=== PATIENT | male | born 1975 | race Caucasian/White ===

== ENCOUNTER 2017-08-27 19:11 | Emergency (ER) | payer SELFPAY ==
[2017-08-27 19:13] VITALS: BP 199/108; PULSE 89; RESP 20; TEMP 37.2; O2SAT 98; BMI 25.1
--- NOTE | 2017-08-27 19:19 | XR_ITS ---
XR chest 2V HISTORY: Shortness of air ITS.REASON: soa ORDERING PHYSICIAN: Michael Andrew MD PATIENT AGE: 42 years COMPARISON: None available FINDINGS: There is moderate to severe elevation of left hemidiaphragm. Heart is slightly shifted toward the right. There are no previous exams for comparison. Visualized lung rubio are clear. Normal size heart. No evidence of CHF. IMPRESSION: Elevated left hemidiaphragm otherwise negative chest
[2017-08-27 19:32] LABS: Basophils # 0.1 K/mm3 (0-0.2); Basophils % 0.4 % (0.1-2.0); Eosinophils # 0.3 K/mm3 (0.0-0.4); Eosinophils % 2.1 % (0.1-12.0); Hematocrit 52.4 % (42.0-52.0); Hemoglobin 17.3 g/dL (14.1-18.0); Lymphocytes # 4.6 K/mm3 (0.7-4.5); Lymphocytes % 38.4 K/mm3 (10-50); Mean Corpuscular HGB Conc 33.1 g/dL (31.8-35.4); Mean Corpuscular Hemoglobin 31.1 pg (27.0-31.2); Mean Corpuscular Volume 93.8 fl (80-94); Mean Platelet Volume 7.6 fl (7.4-10.4); Monocytes # 0.6 K/mm3 (0.1-1.0); Monocytes % 5.3 % (1.7-9.3); Neutrophils # 6.5 K/mm3 (1.8-7.8); Neutrophils % 53.8 % (37.0-80.0); Platelet Count 267 K/mm3 (142-424); Red Blood Count 5.58 M/mm3 (4.60-6.20); Red Cell Distribution Width 12.2 % (11.5-17.5)
[2017-08-27 19:52] LABS: Creatine Kinase 106 U/L (39-308); Potassium 3.8 mmoL/L (3.5-5.1); Sodium 141 mmol/L (136-145); Troponin I < 0.02 ng/ml (0.00-0.06)
[2017-08-27 19:53] LABS: Alanine Aminotransferase 25 U/L (12-78); Albumin Level 3.8 gm/dL (3.4-5.0); Albumin/Globulin Ratio 1.1 (1.1-1.8); Alkaline Phosphatase 81 U/L (46-116); Aspartate Amino Transferase 16 U/L (15-37); Bilirubin,Total 0.3 mg/dL (0.2-1.0); Blood Urea Nitrogen 18 mg/dL (7-18); Carbon Dioxide 28 mmol/L (21.0-32.0); Chloride 104 mmol/L (98-107); Creatinine Clearance Estimated 80 mL/min (0-300); Creatinine,Serum 1.37 mg/dL (0.70-1.30); Estimated Glomerular Filt Rate 57 ml/min (>60); GFR (African American) 69 ML/MIN (>60); Globulin 3.6 gm/dl (1.3-3.2); Glucose 113 mg/dL (74-106); Total Protein,Serum 7.4 gm/dL (6.4-8.2)
[2017-08-27 20:01] LABS: CKMB Relative Index 0.9 U/L (0-4.0)
--- NOTE | 2017-08-27 20:08 | HMH.EDCP ---
ED Disposition Clinical Impression: Atypical chest pain Disposition: Home, Self-Care Condition on Discharge: Good Instructions: DI for Atypical Chest Pain Additional Instructions: see pcp for follow up - Critical Care Critical Care Time: No Attestation: On 08/27/17, the high probability of a clinically significant, sudden or life threatening deterioration of the following system(s) required my full and direct attention, intervention and personal management. The time I documented below is in addition to time spent performing reported procedures but includes the following listed in this critical care notation. Medical Decision Making - Medical Records Medical records reviewed: Yes: I reviewed the patient's medical records. - Henry Inquiry Pt receiving controlled substance: No Vital Signs: 08/27/17 19:13 08/27/17 20:13 08/27/17 22:00 Temperature 98.9 F 98.1 F Temperature Source Oral Oral Pulse Rate [Right Brachial] 89 78 81 Respiratory Rate 20 16 16 Blood Pressure [Right Arm] 199/108 134/83 139/97 Blood Pressure Mean [Right Arm] 138 100 111 Blood Pressure Source [Right Arm] Automatic Cuff Automatic Cuff Automatic Cuff Blood Pressure Position [Right Arm] Sitting Supine Sitting 02 Sat by Pulse Oximetry 98 98 97 Oxygen Delivery Method Room Air Room Air Room Air - Lab Data Lab results reviewed: Yes: I reviewed the patient's lab results. Lab Results 08/27/17 19:20: WBC 12.0 H, RBC 5.58, Hgb 17.3, Hct 52.4 H, MCV 93.8, MCH 31.1, MCHC 33.1, RDW 12.2, Plt Count 267, MPV 7.6, Neut % (Auto) 53.8, Lymph % (Auto) 38.4, [place] % (Auto) 5.3, Eos % (Auto) 2.1, Baso % (Auto) 0.4, Neut # (Auto) 6.5, Lymph # (Auto) 4.6 H, [place] # (Auto) 0.6, Eos # (Auto) 0.3, Baso # (Auto) 0.1 08/27/17 19:20: Sodium 141, Potassium 3.8, Chloride 104, Carbon Dioxide 28, Anion Gap 9.0, BUN 18, Creatinine 1.37 H, Estimated Creat Clear 80, Estimated GFR 57 L, Est GFR ( Amer) 69, Glucose 113 H, Calcium 9.0, Total Bilirubin 0.3, AST 16, ALT 25, Alkaline Phosphatase 81, Total Creatine Kinase 106, CK-MB (CK-2) 1.0, CK-MB (CK-2) Rel Index 0.9, Troponin I < 0.02, Total Protein 7.4, Albumin 3.8, Globulin 3.6 H, Albumin/Globulin Ratio 1.1 08/27/17 19:20: Amylase 57, Lipase 129 Result diagrams: 08/27/17 19:20 08/27/17 19:20 Orders (Tests/Meds): ED MEDICATIONS Discontinued Medications Generic Name Dose Route Start Last Admin Trade Name Freq PRN Reason Stop Dose Admin Ketorolac Tromethamine 30 mg 08/27/17 19:28 08/27/17 19:29 Toradol 30mg/Ml Vial IV 08/27/17 19:29 30 mg ONCE ONE Administration ORDERS Category Date Time Status CT abdomen pelvis wo con Stat Cat Scan 08/27/17 20:[address] chest wo con Stat Cat Scan 08/27/17 20:44 Taken XR chest 2V Stat Exams 08/27/17 19:19 Taken Drug Screen,Urine Stat Lab 08/27/17 20:43 Ordered UA [Urinalysis and Microscopic] Stat Lab 08/27/17 20:43 Ordered 12-lead EKG Request [ECG Request by /Leda] Stat Y 08/27/17 19:19 Ordered - Radiology Data #1 Image(s): Chest Image Reviewed: Yes I reviewed the patient's radiology image Preliminary Findings: Abnormal (elevated lt diaphragm) - CT Data CT Scan: Abdomen, Chest Time Received: 22:[address] Reviewed: Yes: I have viewed the radiologist's interpretation Preliminary Findings: Abnormal (see report) - ECG Data Tracing #1 I reviewed this ECG and interpreted as documented below: Normal Sinus Rhythm: Yes Ischemic changes: non-specific ST-T wave changes Chest Pain HPI - General Chief Complaint: Chest Pain Stated Complaint: chest pain Time Seen by Provider: 08/27/17 20:00 Mode of Arrival: Family Vehicle Source of Information: Patient, Parent(s), Medical Record Limitations: No Limitations Description of Symptoms (Recalled from ER Triage Doc. by RN): chest pain that started about 2 hours ago accompanied by soa. reports pain at midsternal, no radiation - History of Present Illness HPI narrative: pt
[2017-08-27 20:13] VITALS: BP 134/83; PULSE 78; RESP 16; O2SAT 98
--- NOTE | 2017-08-27 20:21 | ED_ITS ---
ED Disposition Clinical Impression: Atypical chest pain Disposition: Home, Self-Care Condition on Discharge: Good Instructions: DI for Atypical Chest Pain Additional Instructions: see pcp for follow up - Critical Care Critical Care Time: No Attestation: On 08/27/17, the high probability of a clinically significant, sudden or life threatening deterioration of the following system(s) required my full and direct attention, intervention and personal management. The time I documented below is in addition to time spent performing reported procedures but includes the following listed in this critical care notation. Medical Decision Making - Medical Records Medical records reviewed: Yes: I reviewed the patient's medical records. - Henry Inquiry Pt receiving controlled substance: No Vital Signs: 08/27/17 19:13 08/27/17 20:13 08/27/17 22:00 Temperature 98.9 F 98.1 F Temperature Source Oral Oral Pulse Rate [Right Brachial] 89 78 81 Respiratory Rate 20 16 16 Blood Pressure [Right Arm] 199/108 134/83 139/97 Blood Pressure Mean [Right Arm] 138 100 111 Blood Pressure Source [Right Arm] Automatic Cuff Automatic Cuff Automatic Cuff Blood Pressure Position [Right Arm] Sitting Supine Sitting 02 Sat by Pulse Oximetry 98 98 97 Oxygen Delivery Method Room Air Room Air Room Air - Lab Data Lab results reviewed: Yes: I reviewed the patient's lab results. Lab Results 08/27/17 19:20: WBC 12.0 H, RBC 5.58, Hgb 17.3, Hct 52.4 H, MCV 93.8, MCH 31.1, MCHC 33.1, RDW 12.2, Plt Count 267, MPV 7.6, Neut % (Auto) 53.8, Lymph % (Auto) 38.4, [place] % (Auto) 5.3, Eos % (Auto) 2.1, Baso % (Auto) 0.4, Neut # (Auto) 6.5 , Lymph # (Auto) 4.6 H, [place] # (Auto) 0.6, Eos # (Auto) 0.3, Baso # (Auto) 0.1 08/27/17 19:20: Sodium 141, Potassium 3.8, Chloride 104, Carbon Dioxide 28, Anion Gap 9.0, BUN 18, Creatinine 1.37 H, Estimated Creat Clear 80, Estimated GFR 57 L, Est GFR ( Amer) 69, Glucose 113 H, Calcium 9.0, Total Bilirubin 0.3, AST 16, ALT 25, Alkaline Phosphatase 81, Total Creatine Kinase 106, CK-MB (CK-2) 1.0, CK-MB (CK-2) Rel Index 0.9, Troponin I < 0.02, Total Protein 7.4, Albumin 3.8, Globulin 3.6 H, Albumin/Globulin Ratio 1.1 08/27/17 19:20: Amylase 57, Lipase 129 Result diagrams: 08/27/17 19:20 08/27/17 19:20 Orders (Tests/Meds): ED MEDICATIONS Discontinued Medications Generic Name Dose Route Start Last Admin Trade Name Freq PRN Reason Stop Dose Admin Ketorolac Tromethamine 30 mg 08/27/17 19:28 08/27/17 19:29 Toradol 30mg/Ml Vial IV 08/27/17 19:29 30 mg ONCE ONE Administration ORDERS Category Date Time Status CT abdomen pelvis wo con Stat Cat Scan 08/27/17 20:[address] chest wo con Stat Cat Scan 08/27/17 20:44 Taken XR chest 2V Stat Exams 08/27/17 19:19 Taken Drug Screen,Urine Stat Lab 08/27/17 20:43 Ordered UA [Urinalysis and Microscopic] Stat Lab 08/27/17 20:43 Ordered 12-lead EKG Request [ECG Request by /Leda] Stat Y 08/27/17 19:19 Ordered - Radiology Data #1 Image(s): Chest Image Reviewed: Yes I reviewed the patient's radiology image Preliminary Findings: Abnormal (elevated lt diaphragm) - CT Data CT Scan: Abdomen, Chest Time Received: 22:[address] Reviewed: Yes: I have viewed the radiologist's interpretation Preliminary Findings: Abnormal (see report)
--- NOTE | 2017-08-27 20:43 | CT_ITS ---
CT abdomen pelvis wo con CLINICAL INDICATION: Abdominal pain ITS.REASON: abd pain ORDERING PHYSICIAN: Alejandro Eaton MD PATIENT AGE: 42 years COMPARISON: None TECHNIQUE: Axial images obtained with sagittal and coronal reformats. All CT scans at the facility use one or more dose reduction, viz: automated exposure control; ma/kV adjustment per patient size (including targeted exams where dose is matched to indication; i.e. head); or iterative reconstruction technique. PROCEDURE: Oral Contrast: None IV Contrast: None . FINDINGS: There is elevated left hemidiaphragm. The liver, spleen, adrenal glands, pancreas, and kidneys have an unremarkable unenhanced CT appearance. Gallbladder is mildly distended. No radio opaque stones are evident. No biliary ductal dilatation. There is some mild haziness of the fat in the portal region nonspecific. Gallbladder ultrasound may be of further value. There is circumaortic left renal vein as a normal variant. Unremarkable appendix. No evidence of intestinal obstruction, free air, or diverticulitis. No pelvic mass or abnormal fluid collection or focal inflammatory change evident. No acute bony anomalies. IMPRESSION: 1. Mild gallbladder distention with questionable haziness in the fat of the portal hepatus. Gallbladder ultrasound may be of further value. 2. Elevated left hemidiaphragm. 3. Otherwise negative CT abdomen pelvis without contrast
--- NOTE | 2017-08-27 20:44 | CT_ITS ---
CT chest wo con INDICATION: Chest pain, abnormal chest x-ray, shortness of air ITS.REASON: abn cxr/chest pain ORDERING PHYSICIAN: Alejandro Eaton MD PATIENT AGE: 42 years COMPARISON: Radiograph of the same day TECHNIQUE: Axial images are obtained without contrast. Sagittal and coronal reformatted images are reviewed as well. All CT scans at the facility use one or more dose reduction, viz: automated exposure control; ma/kV adjustment per patient size (including targeted exams where dose is matched to indication; i.e. head); or iterative reconstruction technique. FINDINGS: No mediastinal or hilar mass. Normal heart size without evidence of pericardial effusion. Left hemidiaphragm is elevated. The heart is slightly shifted toward the right. Coronary artery calcifications are present. Mild atelectatic or fibrotic changes are present in the right middle lobe. Calcified nodes are present in the nathalia and there is a calcified granuloma in the right upper lobe. Upper abdominal images show elevated left hemidiaphragm. IMPRESSION: 1. Elevated left hemidiaphragm with mild cardiac shift towards the right. 2. Coronary artery calcifications suggesting coronary artery disease. 3. Otherwise negative chest CT without contrast IMPRESSION:
--- NOTE | 2017-08-27 20:57 | PC.NURSE ---
[facility] records department notified of need for past chest xray reports per Dr Eaton request. Release of medical records consent completed.
--- NOTE | 2017-08-27 20:58 | PC.NURSE ---
pat to ct at this time
[2017-08-27 21:25] LABS: Amylase 57 U/L (25-125); Lipase 129 u/L (73-393)
[2017-08-27 22:00] VITALS: BP 139/97; PULSE 81; RESP 16; TEMP 36.7; O2SAT 97
[2017-08-27 23:10] VITALS: BP 103/71; PULSE 116; RESP 18; TEMP 37; O2SAT 100
--- NOTE | 2018-10-04 | XR_ITS ---
XR pacemaker defibrillator CLINICAL INDICATION: ITS.REASON: PACEMAKER ORDERING PHYSICIAN: Alejandro Eaton MD PATIENT AGE: 43 years Comparison: None Fluoroscopy time: 3. 85 minutes FINDINGS: Single view submitted with the C-arm shows bipolar pacemaker place IMPRESSION: Status post pacemaker insertion with fluoroscopic guidance
== END 2017-08-27 23:11 | disposition home or self-care (01) ==
PROVIDERS: Emergency Medicine; Emergency Provider Emergency Medicine
DX: R07.89 Other chest pain (principal); R10.10 Upper abdominal pain, unspecified; F17.210 Nicotine dependence, cigarettes, uncomplicated
CPT/HCPCS: 71046; 71250; 74176; 80053; 82150; 82550; 82553; 83690; 84484; 85025; 93005; 96374; 99211; 99284

== ENCOUNTER → 2019-05-09 07:38 | Outpatient (CLI) | payer SELFPAY ==
--- NOTE | 2019-05-09 07:39 | US_ITS ---
PROCEDURE: US GALLBLADDER CLINICAL INDICATION: Right upper quadrant pain, fever COMPARISON: No exams were available for comparison FINDINGS: Pancreas: Unremarkable/Not well seen Liver: Unremarkable. There is appropriate direction of blood flow within a non dilated portal vein. There may be a few scattered areas of fatty infiltration. Right kidney: Unremarkable appearing. No hydronephrosis. The right kidney measures 9.1 x 4.4 by 6.6 cm and shows a good corticomedullary junction. Gallbladder: There multiple calcified and partially calcified gallstones with mild diffuse thickening of the gallbladder wall. The common bile duct is normal caliber. IMPRESSION: Obvious cholelithiasis, question mild hepatic steatosis Dictated by: Dr. Michael Chua MD 05/09/2019 08:[address] Michael Chua MD in [place] 05/09/2019 08:45
== END ==
PROVIDERS: PCP Emergency Medicine; Visit Provider Nurse Practitioner Family
DX: R10.9 Unspecified abdominal pain (principal)
CPT/HCPCS: 76705

== ENCOUNTER → 2020-03-02 11:19 | Outpatient (CLI) | payer BC, SELFPAY | PROVIDERS: PCP Nurse Practitioner Family; Visit Provider Nurse Practitioner Family | DX: R06.00 Dyspnea, unspecified (principal); R06.2 Wheezing | CPT/HCPCS: 94060; 94618; 94726; 94729 ==

== ENCOUNTER → 2020-03-03 08:09 | Outpatient (CLI) | payer BC, SELFPAY ==
--- NOTE | 2020-03-03 08:09 | CT_ITS ---
PROCEDURE: CT HEAD/BRAIN WO CON CLINICAL INDICATION: lighthead, episode last week with some slurred speech, blurred vision COMPARISON: No exams were available for comparison TECHNIQUE: Axial images obtained. All CT scans at the facility use one or more dose reduction, viz: automated exposure control, ma/kV adjustment per patient size (including targeted exams where dose is matched to indication, i.e. head), or iterative reconstruction technique. FINDINGS: No midline shift, mass effect, intracranial hemorrhage, hydrocephalus, or extra-axial fluid collection is evident. Sylvian fissures and cortical sulci are mildly prominent likely within normal limits for the patient's age. There are mild atrophic changes of the cerebellum. The calvarium has an unremarkable appearance. No mastoid effusion. There are inflammatory changes of the ethmoid sinuses bilaterally with minimal inflammatory changes of the frontal sinuses as well the visualized portions of the maxillary sinuses are clear.. IMPRESSION: Findings of mild age-appropriate cortical atrophy and cerebellar atrophy, no acute intracranial pathology noted Dictated by: Dr. Michael Chua MD 03/03/2020 09:07 Dr. Michael Chua MD in [place] 03/03/2020 09:07
== END ==
PROVIDERS: PCP Nurse Practitioner Family; Visit Provider Nurse Practitioner Family
DX: R51 Headache (principal)
CPT/HCPCS: 70450

== ENCOUNTER → 2020-03-09 13:01 | Outpatient (CLI) | payer BC, SELFPAY ==
--- NOTE | 2020-03-09 13:02 | MR_ITS ---
PROCEDURE: MR HEAD/BRAIN WO CON CLINICAL INDICATION: Transient neurological symptoms, severe acute head Pt. states about 1 month ago he had an episode of slurred speech, visual changes and facial drooping that lasted 30 mintues. Pt has not had any episodes since. COMPARISON: CT CT HEAD/BRAIN WO CON from 03/03/2020 TECHNIQUE: Routine multiplanar multi echo sequences are performed without gadolinium enhancement. FINDINGS: No midline shift, mass effect, intracranial hemorrhage, hydrocephalus, or acute cortical infarction is evident. No restricted diffusion apparent. The cerebellopontine angles, cerebellum, and brainstem have an unremarkable appearance. There is a cavum septum pellucidum present as a normal variant. There are a few small punctate T2 white matter hyperintensities present in the subcortical region in the right parietal and frontal parietal junction and in the left external capsule anteriorly. These areas do not show restricted diffusion. The hippocampal gyri are unremarkable in the temporal horns are symmetric. There is a partial empty sella. The optic chiasm, corpus callosum, and craniocervical junction have an unremarkable appearance. No mastoid effusion or sinus air-fluid level. There is moderate mucosal thickening of the ethmoid sinuses.. IMPRESSION: 1. No acute intracranial findings. 2. Nonspecific T2 white matter hyperintensities in the right parietal lobe and left external capsule region. These do not demonstrate restricted diffusion and may only be related to small ischemic gliotic foci. Migraine headache could cause these findings. Demyelinating process felt to be less likely due to imaging characteristics but not totally excluded. 3. Ethmoid sinus disease Dictated by: Hemal Bazan MD 03/10/2020 10:26 Hemal Bazan MD in [place] 03/10/2020 10:26
--- NOTE | 2020-03-10 09:36 | PC.NURSE ---
Patient took HST home and returned device - not enough data on device therefore no charge - Dr. Garcia's office notified.
== END ==
PROVIDERS: PCP Nurse Practitioner Family; Visit Provider Specialist
DX: G44.53 Primary thunderclap headache (principal); I10 Essential (primary) hypertension; M79.641 Pain in right hand; M79.642 Pain in left hand; R06.81 Apnea, not elsewhere classified; R06.83 Snoring; R06.89 Other abnormalities of breathing; R20.8 Other disturbances of skin sensation; R29.2 Abnormal reflex; R29.818 Other symptoms and signs involving the nervous system; R42 Dizziness and giddiness; Z68.27 Body mass index [BMI] 27.0-27.9, adult; Z72.0 Tobacco use
CPT/HCPCS: 70551

== ENCOUNTER → 2020-03-10 07:54 | Outpatient (CLI) | payer BC, SELFPAY ==
--- NOTE | 2020-03-10 07:54 | MR_ITS ---
PROCEDURE: MR ANGIO HEAD WO CON CLINICAL INDICATION: eval of internal circulation Pt. states about 1 month ago he had an episode of slurred speech, visual changes and facial drooping that lasted 30 mintues. COMPARISON: No exams were available for comparison TECHNIQUE: Routine multiplanar multi echo sequences are performed without gadolinium enhancement. FINDINGS: No aneurysm AVM or major intracranial occlusive process evident. The vertebral basilar system has an unremarkable appearance. Single-shot MRV image is obtained but does not include the most proximal and posterior aspect of the superior sagittal sinus. The visualized superior sagittal sinus has an unremarkable appearance superiorly. IMPRESSION: Negative MRA of the brain. Dictated by: Hemal Bazan MD 03/11/2020 09:58 Hemal Bazan MD in [place] 03/11/2020 09:58
--- NOTE | 2020-03-10 07:54 | MR_ITS ---
PROCEDURE: MR ANGIO NECK WO CON CLINICAL INDICATION: eval external circulation Pt. states about 1 month ago he had an episode of slurred speech, visual changes and facial drooping that lasted 30 mintues. COMPARISON: No exams were available for comparison TECHNIQUE: 3D [id number] images obtained without contrast with multi slab reformats. FINDINGS: There is mild degree of motion artifact. The common carotids, internal carotids, and vertebral arteries have an unremarkable appearance. No occlusive changes evident. No evidence of dissection IMPRESSION: Negative MRA of the neck Dictated by: Hemal Bazan MD 03/11/2020 09:53 Hemal Bazan MD in [place] 03/11/2020 09:53
--- NOTE | 2020-03-10 08:43 | CA_ITS ---
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 2D Dimensions LVOT 2.04 cm (M/F) 1.5-2.5 M-Mode Dimensions RVDd 2.38 cm (0.9-2.6) LVDd 4.03 cm (3.5-5.7) LVDs 2.89 cm (3.5-5.7) IVSd 1.56 cm (0.6-1.1) PWd 0.94 cm (0.6-1.1) EF (Teich) 55.30% FS 28.30% EDV (Teich) 71.30 mL ESV (Teich) 31.90 mL Left Ventricle Left atrium is mildly enlarged, left ventricle is normal size, mild concentric left ventricular hypertrophy, visually estimated ejection fraction 55% with no regional wall motion abnormality in the obtained views, diastolic parameters are inconclusive. Right Ventricle Right atrium and right ventricular normal size and contractility. Aortic Valve Aortic valve is minimally thickened and fibrosed, there is no aortic stenosis or aortic insufficiency. Mitral Valve Mitral valve is grossly normal, there is mild mitral regurgitation. Tricuspid Valve Tricuspid valve grossly normal, there is mild tricuspid regurgitation. Tricuspid regurgitation jet velocity is inadequate for calculation of the right ventricular systolic pressure. Pulmonic Valve Pulmonic valve is poorly visualized. Great Vessels Aortic root is relatively normal size. Pericardium No significant pericardial effusion noted. Conclusion 1. Mildly enlarged left atrium, normal left ventricular size, mild concentric left ventricular hypertrophy, visually estimated ejection fraction 55% with no regional wall motion abnormality, technically difficult study. Diastolic parameters are inconclusive. 2. Mild mitral and tricuspid regurgitation. 3. No significant pericardial effusion noted. Electronically signed by : Ryan Coombs, 03/11/2020 09:38:26
== END ==
PROVIDERS: PCP Nurse Practitioner Family; Visit Provider Specialist
DX: R42 Dizziness and giddiness (principal); G44.53 Primary thunderclap headache; R29.818 Other symptoms and signs involving the nervous system; I10 Essential (primary) hypertension; M79.641 Pain in right hand; M79.642 Pain in left hand; R06.81 Apnea, not elsewhere classified; R06.83 Snoring; R06.89 Other abnormalities of breathing; R20.8 Other disturbances of skin sensation; R29.2 Abnormal reflex; Z68.27 Body mass index [BMI] 27.0-27.9, adult; Z72.0 Tobacco use
CPT/HCPCS: 70544; 70547; 93225; 93226; 93306; 93308

== ENCOUNTER → 2020-03-18 15:23 | Outpatient (CLI) | payer BC, SELFPAY ==
[2020-03-18 15:47] LABS: Basophils # 0.1 K/mm3 (0-0.2); Basophils % 0.8 % (0.1-2.0); Eosinophils # 0.5 K/mm3 (0.0-0.4); Eosinophils % 3.9 % (0.1-12.0); Hematocrit 52.8 % (42.0-52.0); Hemoglobin 16.2 g/dL (14.1-18.0); Mean Corpuscular HGB Conc 30.6 g/dL (31.8-35.4); Mean Corpuscular Hemoglobin 29.8 pg (27.0-31.2); Mean Corpuscular Volume 97.5 fl (80-94); Mean Platelet Volume 7.9 fl (7.4-10.4); Monocytes # 0.7 K/mm3 (0.1-1.0); Neutrophils # 6.8 K/mm3 (1.8-7.8); Neutrophils % 56.2 % (37.0-80.0); Platelet Count 330 K/mm3 (142-424); Red Blood Count 5.42 M/mm3 (4.60-6.20); Red Cell Distribution Width 13.2 % (11.5-17.5); White Blood Count 12.1 K/mm3 (4.8-10.8)
[2020-03-18 17:37] LABS: Alanine Aminotransferase 33 U/L (12-78); Albumin Level 4.3 g/dl (3.5-5.0); Albumin/Globulin Ratio 1.7 (1.1-1.8); Alkaline Phosphatase 85 U/L (38-126); Anion Gap 11.4 mEq/L (5-15); Aspartate Amino Transferase 28 U/L (17-59); Bilirubin,Total 0.5 mg/dl (0.2-1.3); Blood Urea Nitrogen 18 mg/dl (9-20); Calcium 9.7 mg/dl (8.4-10.2); Carbon Dioxide 27 mmol/L (22.0-30.0); Chloride 106 mmol/L (98-107); Cholesterol 281 mg/dl (140-200); Estimated Glomerular Filt Rate 72 ml/min (>60); GFR (African American) 87 ML/MIN (>60); Globulin 2.6 g/dL (1.3-3.2); Glucose 85 mg/dl (74-100); HDL Cholesterol 35 mg/dl (40-60); Potassium 4.4 mmoL/L (3.5-5.1); Sodium 140 mmol/L (136-145); Total Protein,Serum 6.9 g/dl (6.3-8.2)
[2020-03-18 17:43] LABS: Triglycerides 523 mg/dl (30-150)
[2020-03-18 17:48] LABS: Direct LDL Cholesterol 150.07 mg/dL (100-129)
[2020-03-18 18:08] LABS: Thyroid Stimulating Hormone 1.48 uIU/mL (0.465-4.68)
[2020-03-18 18:46] LABS: Folate 9.84 ng/mL; Vitamin B12 > 1000 pg/mL (239-931)
== END ==
PROVIDERS: Visit Provider Specialist
DX: G44.53 Primary thunderclap headache (principal); I10 Essential (primary) hypertension; M79.641 Pain in right hand; M79.642 Pain in left hand; R20.8 Other disturbances of skin sensation; R29.2 Abnormal reflex; R29.818 Other symptoms and signs involving the nervous system; R42 Dizziness and giddiness; Z68.27 Body mass index [BMI] 27.0-27.9, adult; Z72.0 Tobacco use; R06.81 Apnea, not elsewhere classified; R06.83 Snoring; R06.89 Other abnormalities of breathing
CPT/HCPCS: 36415; 80053; 80061; 82607; 82746; 84443; 85025

== ENCOUNTER 2021-01-27 08:03 | Emergency (ER) | payer SELFPAY ==
[2021-01-27 08:04] VITALS: BP 191/120; PULSE 90; RESP 20; TEMP 36.7; O2SAT 97; BMI 27.2
--- NOTE | 2021-01-27 08:21 | XR_ITS ---
PROCEDURE: XR ANKLE LT MIN 3V CLINICAL INDICATION: pain, recently healed broken ankle COMPARISON: No exams were available for comparison FINDINGS: Oblique area of sclerosis involves the distal fibula with minimal cortical discontinuity medially consistent with healing fracture. There are no previous exams available for comparison. The ankle mortise is preserved. No other significant anomalies evident. The joint spaces are well-preserved. No significant degenerative/arthritic changes. No erosive changes evident. Other findings:None. IMPRESSION: Healing nondisplaced distal fibular fracture Dictated by: Hemal Bazan MD 01/27/2021 09:00 Hemal Bazan MD in [place] 01/27/2021 09:00
--- NOTE | 2021-01-27 08:21 | XR_ITS ---
PROCEDURE: XR FOOT LT MIN 3V CLINICAL INDICATION: pain, recently healed broken ankle COMPARISON: No exams were available for comparison FINDINGS: No fracture or dislocation. No lytic or blastic change. There is normal mineralization. The joint spaces are well-preserved. No significant degenerative/arthritic changes. No erosive changes evident. Other findings:None. IMPRESSION: Negative left foot. Dictated by: Hemal Bazan MD 01/27/2021 09:01 Hemal Bazan MD in [place] 01/27/2021 09:01
--- NOTE | 2021-01-27 08:24 | HMH.EDGENADL ---
ED Disposition Clinical Impression: Strain of Achilles tendon Qualifiers: Encounter type: initial encounter Laterality: left Qualified Code(s): S86.012A - Strain of left Achilles tendon, initial encounter Disposition: Home, Self-Care Condition on Discharge: Good Instructions: DI for Achilles Tendinopathy Additional Instructions: Continue crutches and orthopedic boot. Ibuprofen for pain. Follow-up with Dre Peters, call today to make appointment. Sitting job only until seen by Dre Peters. Take your blood pressure medication when you return home. Follow-up with your primary care doctor for recheck on blood pressure. Referrals: Provider,Referral, [Primary Care Provider] - Forms: Work/School Release - Critical Care Critical Care Time: No Attestation: On 01/27/21, the high probability of a clinically significant, sudden or life threatening deterioration of the following system(s) required my full and direct attention, intervention and personal management. The time I documented below is in addition to time spent performing reported procedures but includes the following listed in this critical care notation. Medical Decision Making - Henry Inquiry Pt receiving controlled substance: No Henry was queried for this patient: Yes Vital Signs: 01/27/21 08:04 Temperature 98.1 F Temperature Source Oral Pulse Rate [Right Radial] 90 Respiratory Rate 20 Blood Pressure [Right Arm] 191/120 H Blood Pressure Mean [Right Arm] 143 Blood Pressure Source [Right Arm] Automatic Cuff Blood Pressure Position [Right Arm] Sitting 02 Sat by Pulse Oximetry 97 Oxygen Delivery Method Room Air Orders (Tests/Meds): ED MEDICATIONS Discontinued Medications Generic Name Dose Route Start Last Admin Trade Name Freq PRN Reason Stop Dose Admin Ketorolac Tromethamine 60 mg 01/27/21 09:23 Ketorolac 60mg/2ml Vial IM 01/27/21 09:24 ONCE ONE - Radiology Data #1 Image(s): Ankle, Foot/Toes Image Reviewed: Yes I reviewed the patient's radiology image, Yes I have reviewed radiologist's interpretation PROCEDURE: XR FOOT LT MIN 3V CLINICAL INDICATION: pain, recently healed broken ankle COMPARISON: No exams were available for comparison FINDINGS: No fracture or dislocation. No lytic or blastic change. There is normal mineralization. The joint spaces are well-preserved. No significant degenerative/arthritic changes. No erosive changes evident. Other findings:None. IMPRESSION: Negative left foot. Dictated by: Hemal Bazan MD 01/27/2021 09:01 Hemal Bazan MD in [place] 01/27/2021 09:01 PROCEDURE: XR ANKLE LT MIN 3V CLINICAL INDICATION: pain, recently healed broken ankle COMPARISON: No exams were available for comparison FINDINGS: Oblique area of sclerosis involves the distal fibula with minimal cortical discontinuity medially consistent with healing fracture. There are no previous exams available for comparison. The ankle mortise is preserved. No other significant anomalies evident. The joint spaces are well-preserved. No significant degenerative/arthritic changes. No erosive changes evident. Other findings:None. IMPRESSION: Healing nondisplaced distal fibular fracture Dictated by: Hemal Bazan MD 01/27/2021 09:00 Hemal Bazan MD in [place] 01/27/2021 09:00 Medical Decision Narrative: Discussed patient's blood pressure. He is treated for hypertension by Santos Sanchez, [employer] for Dr. Eaton. He has not taken his blood pressure medication this morning. He says whenever he goes to the hospital he sees a doctor or has pain his blood pressure is always too high. General Adult HPI - General Chief complaint: PAIN Stated complaint: left foot pain, no recent accident Time Seen by Provider: 01/27/21 08:24 Mode of Arrival: Ambulatory Limitations: No Limitations Description of Symptoms (Recalled from ER Triage Doc. by RN): Pt c/o left ankle pain near
[2021-01-27 09:44] VITALS: BP 176/117; PULSE 75; RESP 16; TEMP 36.8; O2SAT 98
== END 2021-01-27 09:50 | disposition home or self-care (01) ==
PROVIDERS: Emergency Provider Emergency Medicine
DX: S86.012A Strain of left Achilles tendon, initial encounter (principal); J45.909 Unspecified asthma, uncomplicated; I10 Essential (primary) hypertension; F41.8 Other specified anxiety disorders; F17.210 Nicotine dependence, cigarettes, uncomplicated
CPT/HCPCS: 73610; 73630; 96372; 99282

== ENCOUNTER 2021-05-27 11:47 | Emergency (ER) | payer SELFPAY ==
[2021-05-27 11:48] VITALS: BP 171/124; PULSE 89; RESP 18; TEMP 36.6; O2SAT 93; BMI 26.5
--- NOTE | 2021-05-27 12:18 | XR_ITS ---
PROCEDURE: XR KNEE LT 3V CLINICAL INDICATION: injury COMPARISON: No exams were available for comparison FINDINGS: No fracture or dislocation. No lytic or blastic change. There is normal mineralization. The joint spaces are well-preserved. No significant degenerative/arthritic changes. No erosive changes evident. Other findings:None. IMPRESSION: No acute findings. Dictated by: Hemal Bazan MD 05/27/2021 12:59 Hemal Bazan MD in [place] 05/27/2021 12:59
--- NOTE | 2021-05-27 13:07 | [facility].EDGENADL ---
ED Disposition Clinical Impression: Acute medial meniscal injury of knee Qualifiers: Encounter type: initial encounter Laterality: left Qualified Code(s): S83.8X2A - Sprain of other specified parts of left knee, initial encounter Disposition: Home, Self-Care Condition on Discharge: Good Additional Instructions: Please continue to take ibuprofen and Tylenol at home for your symptoms. Follow-up on an outpatient basis with Dr. Arcos or your orthopedist of choice for follow-up MRI of your knee or further evaluation. If your condition worsens or any other concerns arise, please return to the emergency department for reassessment. Referrals: Santos aSnchez APRN [Primary Care Provider] - Rich Arcos MD [Staff Physician] - - Critical Care Critical Care Time: No Attestation: On 05/27/21, the high probability of a clinically significant, sudden or life threatening deterioration of the following system(s) required my full and direct attention, intervention and personal management. The time I documented below is in addition to time spent performing reported procedures but includes the following listed in this critical care notation. Medical Decision Making - Medical Records Medical records reviewed: Yes: I reviewed the patient's medical records. - Henry Inquiry Pt receiving controlled substance: No Vital Signs: 05/27/21 11:48 Temperature 97.9 F Temperature Source Oral Pulse Rate [Left Radial] 89 Respiratory Rate 18 Blood Pressure [Right Arm] 171/124 H Blood Pressure Mean [Right Arm] 139 Blood Pressure Source [Right Arm] Automatic Cuff Blood Pressure Position [Right Arm] Sitting 02 Sat by Pulse Oximetry 93 L Oxygen Delivery Method Room Air - Radiology Data #1 XR L knee: Impression: No acute findings. Medical Decision Narrative: Patient is a healthy 46-year-old presenting with a chief complaint of left knee pain after stepping off a ladder. Differential diagnosis includes, but is not limited to, fracture, dislocation, ligament injury. On initial exam, patient is hemodynamically stable though nontoxic-appearing. Patient is hypertensive but with repeat measurements, blood pressure is improved and is likely due to pain. Patient was treated with IM Toradol for symptoms. Exam shows symmetrical exam and bilateral knees without any significant overlying erythema or edema. No wounds. Patient has tenderness in the medial left knee. Exam is consistent with medial meniscus injury. Patient was counseled regarding symptomatic management at home and advised to follow-up with orthopedics on an outpatient basis for an evaluation with an MRI. Patient was discharged in a stable condition. General Adult HPI - General Chief complaint: Extremity Injury, Lower Stated complaint: AO 1203, left knee pain Time Seen by Provider: 05/27/21 12:30 Mode of Arrival: Ambulatory Limitations: No Limitations Description of Symptoms (Recalled from ER Triage Doc. by RN): c/o left knee pain after getting down off a ladder a few weeks ago and it popped when it twisted and has been having pain - History of Present Illness HPI narrative: Piter is a 46yo male sending for 2 weeks of left knee pain. Patient reports that 2 weeks ago, he stepped off the ladder and twisted and felt his left knee pop. He has had pain since but no significant swelling. He is having worsening difficulty with ambulation and Tylenol is not controlling his symptoms at home. Patient denies any other injury, fever, other systemic symptoms. - Related Data Previous Rx's Medication Instructions Recorded propranolol 120 mg 120 mg PO DAILY #30 cap 03/18/20 capsule,extended release 24 hr zolpidem 10 mg tablet 10 mg PO HS PRN #2 tab 03/18/20 Allergies Allergy/AdvReac Type Severity Reaction Status Date / Time Penicillins Allergy Intermediate Hives Verified 03/18/20 14:21 aspirin AdvReac Mild nose bleeds Verified 03/18/20 14:21 [facility] History
[2021-05-27 13:50] VITALS: BP 154/98; PULSE 87; RESP 18; TEMP 36.6; O2SAT 94
== END 2021-05-27 13:50 | disposition home or self-care (01) ==
PROVIDERS: Emergency Provider Emergency Medicine; PCP Nurse Practitioner Family
DX: S83.8X2A Sprain of other specified parts of left knee, initial encounter (principal); X50.1XXA Overexertion from prolonged static or awkward postures, initial encounter; Y92.89 Other specified places as the place of occurrence of the external cause; I10 Essential (primary) hypertension; F41.8 Other specified anxiety disorders; F17.210 Nicotine dependence, cigarettes, uncomplicated
CPT/HCPCS: 73562; 96372; 99282